=== PATIENT | female | born 1965 | race Two or more races ===

== ENCOUNTER 2018-03-16 14:34 | Inpatient (IN) | payer OTHER, SELFPAY ==
[~2018-03-16] VITALS: Ht 154.9 cm; Wt 70.3 kg
[2018-03-16 15:54] LABS: BASOPHILS # (AUTO) 0.04 x10^3/uL (0-0.1); BASOPHILS % (AUTO) 0 % (0-1); EOSINOPHILS # (AUTO) 0.05 x10^3/uL (0-0.4); EOSINOPHILS % (AUTO) 1 % (1-7); LYMPHOCYTES # (AUTO) 2.58 x10^3/uL (1-3.4); LYMPHOCYTES % (AUTO) 26 % (22-44); MD NO; MEAN CORPUSCULAR HEMOGLOBIN 27.9 pg (27.0-34.8); MEAN CORPUSCULAR HGB CONC 32.8 g/dL (32.4-35.8); MEAN CORPUSCULAR VOLUME 85.1 fL (80-100); MEAN PLATELET VOLUME 8.4 fL (7.4-10.4); MONOCYTES # (AUTO) 0.63 x10^3/uL (0.2-0.8); MONOCYTES % (AUTO) 6 % (2-9); NEUTROPHILS # (AUTO) 6.84 x10^3/uL (1.8-6.8); NEUTROPHILS % (AUTO) 68 % (42-75); PLATELET COUNT 332 x10^3/uL (130-400); RED BLOOD COUNT 5.36 x10^6/uL (3.82-5.3); RED CELL DISTRIBUTION WIDTH 12.5 % (9.6-15.2)
[2018-03-16 16:00] LABS: INTERNATIONAL NORMALIZED RATIO 1.05 (0.93-1.1); PROTHROMBIN TIME 11.1 Seconds (9.6-11.5)
[2018-03-16 16:04] LABS: TROPONIN I < 0.015 ng/mL (0.000-0.045)
[2018-03-16 16:12] LABS: ALANINE AMINOTRANSFERASE 22 U/L (12-78); ALBUMIN 2.7 g/dL (3.4-5.0); ANION GAP 8 mmol/L (5-15); CALCIUM 8.7 mg/dL (8.5-10.1); CHLORIDE 99 mmol/L (98-107); CREATININE 0.72 mg/dL (0.55-1.02)
[2018-03-16 16:16] LABS: ALKALINE PHOSPHATASE 89 U/L (45-117); BILIRUBIN,TOTAL 0.9 mg/dL (0.2-1.0); TOTAL PROTEIN 8.1 g/dL (6.4-8.2)
[2018-03-16] MEDS ORDERED: LIDOCAINE-MPF 1%, 5ML ONE (16:54)
[2018-03-16] MEDS ORDERED: OMNIPAQUE 350 MG/ML, 100ML BOTTLE ONE (17:13)
[2018-03-16] MEDS ORDERED: NS + 20MEQ KCL 1,000 ML IV SCH (17:17)
[2018-03-16] MEDS ORDERED: HYDROcodone/APAP 5/325 TABLET PO PRN (17:30)
[2018-03-16] MEDS ORDERED: ONDANSETRON 2MG/ML, 2ML IVPush PRN (17:30)
[2018-03-16] MEDS ORDERED: LORazepam 0.5MG TABLET PO PRN (17:30)
[2018-03-16] MEDS ORDERED: PLEASE ENTER ALLERGIES MC SCH (17:30)
[2018-03-16] MEDS ORDERED: POLYETHYLENE GLYCOL 17 GM PACKET PO PRN (17:30)
[2018-03-16] MEDS ORDERED: GUAIFENESIN/COD200MG-20MG/10ML LIQUID PO PRN (17:30)
[2018-03-16] MEDS ORDERED: DOCUSATE 100 MG CAPSULE PO PRN (17:30)
[2018-03-16] MEDS ORDERED: MORPHINE SULFATE 4 MG/ML, 1ML IVPush PRN (17:30)
[2018-03-16] MEDS ORDERED: SODIUM CHLORIDE FLUSH 10ML SYR IVF PRN (18:00)
[2018-03-16 19:15] VITALS: BP 116/83
[2018-03-16 20:13] VITALS: BP 116/83
[2018-03-16] MEDS: ACETAMINOPHEN 325 MG TABLET PO PRN (20:48)
[2018-03-16 21:18] LABS: MICROSCOPIC AUTO
[2018-03-16 21:20] LABS: CULTURE INDICATED? YES
[2018-03-16] MEDS ORDERED: SODIUM CHLORIDE 0.9%, 500ML IVBOLUS ONE (23:00)
[2018-03-16] MEDS: CEFTRIAXONE PMX 1GM/50ML 50 ML IV SCH (23:21)
[2018-03-17 01:34] VITALS: BP 118/72
[2018-03-17 05:19] LABS: BASOPHILS # (AUTO) 0.03 x10^3/uL (0-0.1); BASOPHILS % (AUTO) 0 % (0-1); EOSINOPHILS # (AUTO) 0.06 x10^3/uL (0-0.4); EOSINOPHILS % (AUTO) 1 % (1-7); LYMPHOCYTES # (AUTO) 2.94 x10^3/uL (1-3.4); LYMPHOCYTES % (AUTO) 31 % (22-44); MD NO; MEAN CORPUSCULAR HEMOGLOBIN 28.6 pg (27.0-34.8); MEAN CORPUSCULAR HGB CONC 33.9 g/dL (32.4-35.8); MEAN CORPUSCULAR VOLUME 84.4 fL (80-100); MEAN PLATELET VOLUME 8.6 fL (7.4-10.4); MONOCYTES # (AUTO) 0.65 x10^3/uL (0.2-0.8); MONOCYTES % (AUTO) 7 % (2-9); NEUTROPHILS # (AUTO) 5.78 x10^3/uL (1.8-6.8); NEUTROPHILS % (AUTO) 61 % (42-75); PLATELET COUNT 283 x10^3/uL (130-400); RED CELL DISTRIBUTION WIDTH 12.9 % (9.6-15.2)
[2018-03-17 05:25] LABS: ANION GAP 6 mmol/L (5-15); CALCIUM 8.1 mg/dL (8.5-10.1); CHLORIDE 105 mmol/L (98-107)
[2018-03-17 05:26] LABS: CREATININE 0.54 mg/dL (0.55-1.02)
[2018-03-17 07:19] VITALS: BP 98/54
[2018-03-17] MEDS: SENNA/DOCUSATE TABLET PO SCH (10:17)
[2018-03-17] MEDS ORDERED: LIDOCAINE 1%, 20ML ONE (12:00)
[2018-03-17] MEDS ORDERED: LIDOCAINE 1%-EPI 1:100K, 30ML ONE (12:00)
[2018-03-17] MEDS ORDERED: SODIUM BICARB 4.2%, 10ML SYRINGE ONE (12:00)
[2018-03-17] MEDS: ACETAMINOPHEN 325 MG TABLET PO PRN (14:08)
[2018-03-17 15:55] VITALS: BP 110/72
[2018-03-17 19:42] VITALS: BP 114/75
[2018-03-17] MEDS: CEFTRIAXONE PMX 1GM/50ML 50 ML IV SCH (23:28)
[2018-03-18 02:02] VITALS: BP 109/58
[2018-03-18 08:50] VITALS: BP 119/77
[2018-03-18] MEDS: ACETAMINOPHEN 325 MG TABLET PO PRN ×2 (09:24→16:31)
[2018-03-18] MEDS: SENNA/DOCUSATE TABLET PO SCH (09:24)
[2018-03-18] MEDS: INSULIN LISPRO 100 UNITS/ML, PEN SQ-INSULIN SCH ×3 (12:14→20:39)
[2018-03-18 14:52] VITALS: BP 116/83
[2018-03-18 20:02] VITALS: BP 114/75
[2018-03-18] MEDS: CEFTRIAXONE PMX 1GM/50ML 50 ML IV SCH (23:30)
[2018-03-19 02:22] VITALS: BP 108/69
[2018-03-19] MEDS: ACETAMINOPHEN 325 MG TABLET PO PRN ×2 (02:52→12:45)
[2018-03-19 05:03] LABS: BASOPHILS # (AUTO) 0.02 x10^3/uL (0-0.1); BASOPHILS % (AUTO) 0 % (0-1); EOSINOPHILS % (AUTO) 1 % (1-7); LYMPHOCYTES # (AUTO) 2.26 x10^3/uL (1-3.4); LYMPHOCYTES % (AUTO) 23 % (22-44); MD NO; MEAN CORPUSCULAR HEMOGLOBIN 28.4 pg (27.0-34.8); MEAN CORPUSCULAR HGB CONC 33.4 g/dL (32.4-35.8); MEAN CORPUSCULAR VOLUME 85.3 fL (80-100); MEAN PLATELET VOLUME 8.7 fL (7.4-10.4); MONOCYTES # (AUTO) 0.72 x10^3/uL (0.2-0.8); MONOCYTES % (AUTO) 7 % (2-9); NEUTROPHILS % (AUTO) 68 % (42-75); PLATELET COUNT 286 x10^3/uL (130-400); RED BLOOD COUNT 4.73 x10^6/uL (3.82-5.3); RED CELL DISTRIBUTION WIDTH 12.6 % (9.6-15.2)
[2018-03-19 05:15] LABS: CHLORIDE 103 mmol/L (98-107)
[2018-03-19 05:19] LABS: ANION GAP 9 mmol/L (5-15); CALCIUM 7.9 mg/dL (8.5-10.1); CREATININE 0.47 mg/dL (0.55-1.02)
[2018-03-19] MEDS: INSULIN LISPRO 100 UNITS/ML, PEN SQ-INSULIN SCH ×3 (07:27→16:00)
[2018-03-19 08:39] VITALS: BP 113/78
[2018-03-19] MEDS: SENNA/DOCUSATE TABLET PO SCH (09:41)
[2018-03-19] MEDS ORDERED: AMOX1TAB64 PO (12:05)
[2018-03-19 12:36] VITALS: BP 118/75
== END 2018-03-19 16:40 | disposition home or self-care (01) | DRG 597 ==
LOC: ED 15:59 → SUATTDRO 17:16 → EDIP 17:17 → 3NW 17:52 → DCLOUNGE 03-19 16:27
PROVIDERS: ADMIT Family Medicine; ATTEND Family Medicine
PROC: 0W993ZZ Drainage of Right Pleural Cavity, Percutaneous Approach (ICD-10-PCS; principal; 2018-03-16)
PROC: 0HBT3ZX Excision of Right Breast, Percutaneous Approach, Diagnostic (ICD-10-PCS; 2018-03-17)
DX: C50.911 Malignant neoplasm of unspecified site of right female breast (principal); J96.01 Acute respiratory failure with hypoxia; J18.9 Pneumonia, unspecified organism; C78.01 Secondary malignant neoplasm of right lung; C78.02 Secondary malignant neoplasm of left lung; N39.0 Urinary tract infection, site not specified; J91.0 Malignant pleural effusion; C79.51 Secondary malignant neoplasm of bone; B95.2 Enterococcus as the cause of diseases classified elsewhere; E11.65 Type 2 diabetes mellitus with hyperglycemia; Z86.32 Personal history of gestational diabetes; Z79.899 Other long term (current) drug therapy; Z17.1 Estrogen receptor negative status [ER-]
CPT/HCPCS: 19083; 19084; 32555; 36415; 71046; 71275; 74177; 80048; 80053; 81001; 82945; 82962; 83615; 83735; 83880; 83986; 84157; 84484; 85025; 85610; 87040; 87070; 87077; 87086; 87186; 87205; 88112; 88305; 88341; 88342; 88360; 89051; 93005; 99285; G0378; J0696; J3480; J3490; Q9967; 77065; 77066; J1815; J7040